=== PATIENT | male | born 1995 | race Caucasian/White ===

== ENCOUNTER 2022-07-06 00:43 | Emergency (ER) | payer SELFPAY ==
[~2022-07-06] VITALS: Ht 175.3 cm; Wt 64.0 kg
[2022-07-06 01:17] LABS: HEMOGLOBIN. 14.5 g/dL (14.0-18.0); MEAN CORPUSCULAR HEMOGLOBIN 32.4 pg (28.0-32.0); MEAN CORPUSCULAR VOLUME 91.9 fL (80.0-94.0); MEAN PLATELET VOLUME 8.9 fl (7.4-10.4); PLATELET 203 x1000/uL (130-400); RED BLOOD CELL COUNT 4.47 mill/uL (4.7-6.1); RED CELL DISTRIBUTION WIDTH 13.6 % (11.6-14.6)
[2022-07-06 01:23] LABS: CHLORIDE 109 mEq/L (98-107)
[2022-07-06 01:33] LABS: ETHANOL BLOOD 74 mg/dL
[2022-07-06 01:53] LABS: *AMPHETAMINES SCREEN URINE NEGATIVE (NEGATIVE); *BARBITURATES SCREEN URINE NEGATIVE (NEGATIVE); *BENZODIAZEPINES SCREEN URINE NEGATIVE (NEGATIVE); *COCAINE SCREEN URINE NEGATIVE (NEGATIVE); CANNABINOID URINE SCREEN PRESUMTIVE POSITIVE (NEGATIVE); METHADONE URINE SCREEN NEGATIVE (NEGATIVE); OPIATES URINE SCREEN NEGATIVE (NEGATIVE); PHENCYCLIDINE URINE SCREEN NEGATIVE (NEGATIVE)
[2022-07-06] MEDS ORDERED: ONDANSETRON 4MG ODT PO ONE (02:00)
[2022-07-06 02:08] LABS: PLATELET ESTIMATE NORMAL
[2022-07-06 02:40] VITALS: BP 103/66
== END 2022-07-06 02:55 | disposition left against medical advice (07) ==
LOC: ER 00:50
DX: T40.2X1A Poisoning by other opioids, accidental (unintentional), initial encounter (principal); F11.188 Opioid abuse with other opioid-induced disorder; R41.82 Altered mental status, unspecified; R00.0 Tachycardia, unspecified; F10.10 Alcohol abuse, uncomplicated; Y90.3 Blood alcohol level of 60-79 mg/100 ml; F12.90 Cannabis use, unspecified, uncomplicated; Y92.521 Bus station as the place of occurrence of the external cause
CPT/HCPCS: 36415; 80053; 80305; 80307; 80320; 80329; 85025; 93005; 99284; Q0162; G0480